=== PATIENT | female | born 1990 | race Two or more races ===

== ENCOUNTER 2021-12-09 02:04 | Emergency (ER) | payer OTHER, SELFPAY ==
--- NOTE | 2021-12-09 | ECG_ITS ---
Test Reason : CHEST PAIN Blood Pressure : / mmHG Vent. Rate : 070 BPM Atrial Rate : 070 BPM P-R Int : 112 ms QRS Dur : 086 ms QT Int : 362 ms P-R-T Axes : 079 061 022 degrees QTc Int : 390 ms Normal sinus rhythm Nonspecific T wave abnormality Abnormal ECG No previous ECGs available Referred By: David Payton Electronically Signed By:CODY LÓPEZ
[2021-12-09 04:58] LABS: MANUAL DIFF FLAG NO
[2021-12-09 05:01] LABS: Basophils Percent Auto 0.5 % (0-2); Eosinophils Absolute Auto 0.1 X10*3/uL (0.0-0.4); Hematocrit 35.7 % (37.0-47.0); Hemoglobin 11.9 g/dl (12.0-16.0); Imm Gran Abs Auto 0.01 X10*3/uL (0.00-0.03); Imm Gran Pct Auto 0.2 % (0.0-0.4); Lymphocytes Percent Auto 34.2 % (20-40); Mean Corpuscular HGB Conc 33.3 g/dl (31.0-35.0); Mean Corpuscular Hemoglobin 28.7 pg (27.0-33.0); Mean Platelet Volume 10.6 fL (9.4-12.3); Monocytes Absolute Auto 0.8 X10*3/uL (0.1-1.2); Monocytes Percent Auto 13.4 % (2-11); Neutrophils Absolute Auto 2.9 x10*3/uL (2.0-8.3); Neutrophils Percent Auto 49.7 % (45-73); Platelet Count 232 X10*3/uL (160-400); Red Blood Count 4.15 X10*6/uL (4.20-5.50); Red Cell Distribution Width 12.7 % (11.0-16.0); White Blood Count 5.9 X10*3/uL (4.8-10.8)
[2021-12-09 05:07] LABS: Carbon Dioxide 24 mmol/L (22-29); Troponin-I High Sensitivity < 3.5 ng/L (<3.5-17.0)
[2021-12-09 05:08] LABS: Estimated Glomerular Filt Rate > 60
[2021-12-09 05:15] LABS: Anion Gap 11 (12-20); Blood Urea Nitrogen 18 mg/dL (9-16); Calcium 8.8 mg/dL (8.4-10.2); Chloride 108 mmol/L (96-108); Glucose Random 74 mg/dL (60-115); Potassium 3.7 mmol/L (3.3-5.1); Sodium 139 mmol/L (135-145)
== END 2021-12-09 04:00 | disposition home or self-care (01) ==
PROVIDERS: Emergency Provider Emergency Medicine
DX: R07.89 Other chest pain (principal)
CPT/HCPCS: 36415; 80048; 84484; 85025; 93005; 99283

== ENCOUNTER 2022-11-08 21:44 | Emergency (ER) | payer OTHER, SELFPAY ==
[2022-11-08 21:51] VITALS: BP 109/70; PULSE 91; RESP 18; TEMP 36.9; O2SAT 99; BMI 25.5
--- NOTE | 2022-11-08 21:58 | ED.GENADULT ---
HPI - General Adult General Chief complaint: General Medical Stated complaint: right leg pain Time Seen by Provider: 11/08/22 21:58 Source: patient Mode of arrival: ambulatory Limitations: no limitations History of Present Illness HPI narrative: Patient complaining of pain in right lateral aspect of right leg since yesterday no swelling of the leg no history of DVT no back pain patient took baclofen and feeling better Related Data Previous Rx's Medication Instructions Recorded ibuprofen 600 mg tablet 600 mg PO Q6H PRN fever or pain 11/08/22 #30 tabs Allergies Allergy/AdvReac Type Severity Reaction Status Date / Time Sulfa (Sulfonamide Allergy Hives Verified 11/08/22 21:50 Antibiotics) Review of Systems Review of Systems: Yes all other systems are reviewed and are negative PMFSH Social History Social History Advance Directives: No Advance Directives Information Provided: No Physical Exam ED Vital Signs: Vital Signs - 24 hr 11/08/22 21:51 Temperature 98.5 F Pulse Rate 91 Respiratory Rate 18 Blood Pressure 109/70 Pulse Oximetry 99 Oxygen Delivery Method Room Air BMI result Body Mass Index 25.5 General: Yes no CVA tenderness Back/Spine/Pelvis Back: no CVA tenderness Thoracic/Lumbar Spine: thoracic and lumbar spine normal to inspection, thoraco-lumbar ROM normal and straight leg raise negative bilaterally Extrem General: Yes no calf tenderness and Yes normal gait Upper/lower leg/hip images: 1. Tenderness at iliotibial band area which increases on abduction of the right leg no calf tenderness no thigh muscle swelling Medications Administered Discontinued Medications Generic Name Dose Route Start Last Admin Trade Name Freq PRN Reason Stop Dose Admin Ibuprofen 600 mg 11/08/22 22:16 11/08/22 22:22 Ibuprofen 600 Mg Tablet PO 11/08/22 22:17 600 mg ONCE ONE Administration Medical Decision Making Medical Decision Making [facility] Narrative: Patient clinically with right iliotibial band syndrome will discharge patient home on ibuprofen Discharge Plan Discharge Clinical Impression: Iliotibial band syndrome of right side Patient Disposition: Home, Self-Care Instructions: Iliotibial Band Syndrome (ED) Additional Instructions: Rest to your right Take ibuprofen for pain Prescriptions: New ibuprofen 600 mg tablet 600 mg PO Q6H PRN (Reason: fever or pain) Qty: 30 0RF Interventions: ED Discharge Assessment Last Done: 11/08/22 22:29 Print Language: Croatian
[2022-11-08] MEDS: Ibuprofen 600 MG TABLET PO (22:22)
--- NOTE | 2022-11-08 22:24 | PC.NURSE ---
pt medicated per AUG for 610 right leg pain
== END 2022-11-08 22:29 | disposition home or self-care (01) ==
PROVIDERS: Emergency Provider Internal Medicine; PCP Nurse Practitioner Family
DX: M76.31 Iliotibial band syndrome, right leg (principal)
CPT/HCPCS: 99283